=== PATIENT | female | born 1955 | race Caucasian/White ===

== ENCOUNTER → 2020-03-14 | Outpatient (CLI) | payer BC ==
--- NOTE | 2020-03-14 15:45 | RAD ---
EXAMINATION: US BREAST LT, MG DIGITAL UNILAT DIAGNOSTIC MAMMO WITH MAXIMILIAN CLINICAL HISTORY: Six-month follow-up left breast TECHNIQUE: Digital craniocaudal and mediolateral oblique views of the left breasts obtained with 3-D tomosynthesis as well as targeted left breast ultrasound. COMPARISON: Bilateral mammogram and breast ultrasound 08/24/2019 BREAST COMPOSITION: The breasts are heterogeneously dense, which may obscure small masses. FINDINGS: LEFT BREAST DIAGNOSTIC MAMMOGRAM: Slightly increased benign-appearing calcification associated with/adjacent to the small mass in the l eft upper outer quadrant, otherwise the mass appears essentially unchanged. No evidence of new suspic ious mass, suspicious calcifications, or areas architectural distortion. LEFT BREAST ULTRASOUND: At 1:00 position 3 cm from the nipple, there is redemonstration of a small hypoechoic mass measuring 5 x 6 x 3 mm, slightly smaller but otherwise essentially unchanged in appearance when accounting for differences in imaging technique. At 2:00 position 5 cm from the nipple, there is redemonstration of a small hypoechoic mass measuring 10 x 8 x 3 mm, essentially unchanged in appearance when accounting for differences in imaging techniq ue. No evidence of new or suspicious mass. No abnormal appearing axillary lymph nodes. IMPRESSION: Probably benign masses in the left upper-outer quadrant as described. BI-RADS ASSESSMENT: Category 3: Probably Benign RECOMMENDATION: Recommend follow-up mammogram of full field of view images of the bilateral breasts in 6 months for s creening on the right and surveillance on the left as well as targeted left breast ultrasound in 6 mo nths for surveillance. PQRS compliance statement - Patient information was entered into a reminder system with a target due date for the next mammogram. "Our facility is accredited by the [employer] Mamm[employer]." Electronically signed by: Meir Mckeon DO (03/14/2020 3:42 PM) [id number]
== END ==
LOC: MAMMO 13:26
PROVIDERS: ATTEND Family Medicine
DX: R92.2 Inconclusive mammogram (principal); N63.21 Unspecified lump in the left breast, upper outer quadrant
CPT/HCPCS: 76641; 77065; G0279; 77061

== ENCOUNTER → 2020-08-30 | Outpatient (CLI) | payer BC ==
--- NOTE | 2020-08-30 14:47 | RAD ---
EXAMINATION: US BREAST LT, MG DIGITAL BILAT DIAGNOSTIC MAMMO WITH MAXIMILIAN CLINICAL HISTORY: Six-month follow up left breast TECHNIQUE: Digital craniocaudal and mediolateral oblique views of the bilateral breasts obtained with 3-D tomosynthesis. Targeted left breast ultrasound also obtained. COMPARISON: 03/14/2020, 08/24/2019, 11/19/2018, 11/08/2018 BREAST COMPOSITION: The breasts are heterogeneously dense, which may obscure small masses. FINDINGS: BILATERAL DIAGNOSTIC MAMMOGRAM: Interval increased benign-appearing coarse calcification within/adjacent to the small mass in the lef t upper-outer quadrant, otherwise the mass appears essentially unchanged. Scattered asymmetries bilat erally, similar to prior studies. No evidence of new suspicious mass. No evidence of suspicious calci fications or areas of architectural distortion. Biopsy marker clip in the right upper-outer quadrant remains in similar position. LEFT BREAST ULTRASOUND: At 2:00 position 5 cm from the nipple, the small hypoechoic mass measuring 9 x 8 x 3 mm appears essen tially unchanged, previously 10 x 8 x 3 mm. The previously noted mass at 1:00 position 3 cm from the nipple is not visualized on this exam. Benign-appearing axillary lymph nodes. IMPRESSION: Probably benign mass in the left upper-outer quadrant as described, suggestive of an involuting fibro adenoma. Recommend follow-up left breast diagnostic mammogram and targeted left breast ultrasound in 6 months. BI-RADS ASSESSMENT: Category 3: Probably Benign RECOMMENDATION: Left breast diagnostic mammogram and targeted left breast ultrasound in 6 months. PQRS compliance statement - Patient information was entered into a reminder system with a target due date for the next mammogram. "Our facility is accredited by the [employer] Mamm[employer]." Electronically signed by: Meir Mckeon DO (08/30/2020 2:44 PM) [id number]
== END ==
LOC: MAMMO 12:24
PROVIDERS: ATTEND Family Medicine
DX: N63.21 Unspecified lump in the left breast, upper outer quadrant (principal); R92.1 Mammographic calcification found on diagnostic imaging of breast
CPT/HCPCS: 76641; 77066; G0279; 77062

== ENCOUNTER → 2021-02-28 | Outpatient (CLI) | payer BC ==
--- NOTE | 2021-02-28 13:42 | RAD ---
EXAM: Left breast diagnostic mammogram with tomosynthesis; left breast sonogram. HISTORY: 65-year-old female presents for evaluation of findings within the left breast demonstrate on prior mammograms and sonograms. TECHNIQUE: Full-field digital craniocaudal and mediolateral oblique 2D and 3D tomosynthesis images of the left breast are obtained for evaluation. Computer aided detection was applied. Sonographic imagi ng of the left breast targeted to the site of prior findings was performed. COMPARISON: Sonograms and mammograms dated 08/30/2020, 03/14/2020, 08/24/2019 and 11/19/2018. BREAST PARENCHYMAL DENSITY: Level D - Extremely dense. FINDINGS: There is no new suspicious mass, microcalcification or region of architectural distortion. There is a stable nodule containing coarse clustered calcifications within the upper outer quadrant o f the left breast. There are additional areas of stable asymmetry and nodularity. Sonographic imaging of the left breast demonstrates a stable 9 mm heterogeneous hypoechoic lesion con taining coarse calcifications at the 2:00 position 5 cm from the nipple. This demonstrates no interna l blood flow or posterior shadowing. No additional lesion is seen. IMPRESSION: 1. Stable 9 mm nodule containing coarse calcifications at the 2:00 position of the left breast. The g reater than two-year course of stability and imaging features favor a benign degenerating fibroadenom a. 2. No new suspicious mammographic or sonographic finding. 3. BI-RADS Category 2: Benign finding(s). The patient will be due for bilateral mammography in 6 gabino hs according to a previously established bilateral mammography interval. If your mammogram demonstrates that you have dense breast tissue, which could hide abnormalities, and if you have other risk factors for breast cancer that have been identified, you might benefit from s upplemental screening tests that may be suggested by your ordering physician. Dense breast tissue, i n and of itself, is a relatively common condition. This information is not provided to cause undue c oncern, but rather to raise your awareness and to promote discussion with your physician regarding th e presence of other risk factors, in addition to dense breast tissue. A report of your mammography re sults will be sent to you and your physician. You should contact your physician if you have any ques tions or concerns regarding this report. Mammography is a sensitive method for finding small breast cancers, but it does not detect them all a nd is not a substitute for careful clinical examination. A negative mammogram does not negate a clin ically suspicious finding and should not result in delay in biopsying a clinically suspicious abnorma lity. PQRS compliance statement - Patient information was entered into a reminder system with a target due date for the next mammogram. "Our facility is accredited by the [employer] Mammography [employer]." Electronically signed by: Grace Kee MD (02/28/2021 1:40 PM) [id number]
== END ==
LOC: MAMMO 12:44
PROVIDERS: ATTEND Family Medicine
DX: N63.21 Unspecified lump in the left breast, upper outer quadrant (principal)
CPT/HCPCS: 76642; 77065; G0279; 77061